=== PATIENT | male | born 1995 | race Caucasian/White ===

== ENCOUNTER 2022-05-28 10:26 | Emergency (ER) | payer OTHER ==
[2022-05-28 11:17] LABS: Absolute Lymphocytes (CBC) 1.3 K/uL (0.7-4.9); Hematocrit 47.5 % (39.6-49.0); Lymphocytes % 35.4 % (15.3-44.8); MCV 91.1 fL (80-100); MPV 9.1 fL (7.6-11.3); RBC Red Blood Cell Count 5.21 M/uL (4.33-5.43)
[2022-05-28 11:43] LABS: Potassium 3.8 mmol/L (3.5-5.1)
--- NOTE | 2022-05-28 12:17 | RAD REPORT ---
EXAM DESCRIPTION: RAD - Chest Single View - 05/28/2022 11:19 am CLINICAL HISTORY: CHEST PAIN Chest pain. COMPARISON: No comparisons FINDINGS: Portable technique limits examination quality. The lungs are grossly clear. The heart is normal in size. No displaced fractures. IMPRESSION: No acute intrathoracic process suspected.
--- NOTE | 2022-05-28 14:23 | EKG ---
Test Date: 2022-05-28 Test Time: 10:53:39 [employer]: ALP MEASUREMENT RESULTS: Intervals: Rate: 58 [place]: 168 QRSD: 86 QT: 360 QTc: 353 [place]: P: 58 [place]: 168 QRS: 85 T: 74 INTERPRETIVE STATEMENTS: Sinus bradycardia Otherwise normal ECG Compared to ECG 02/16/2013 10:17:35 Sinus arrhythmia no longer present Early repolarization no longer present Electronically Signed On 05-28-22 14:22:21 [employer] MACHINE OPERATOR by Tao Sidhu
[2022-05-28] MEDS ORDERED: KETOROLAC 30 MG/ML INJ ONE (14:46)
--- NOTE | 2022-05-28 15:17 | ER ---
Nurse's Notes [facility] Name: Dre Leon Age: 26 yrs Sex: Male : 1995 Arrival Date: 05/28/2022 Time: 10:30 Bed 9 Private MD: Diagnosis: Chest pain, unspecified Presentation: 05/28 10:48 Chief complaint: Patient states: Mid sternal, sharp, CP started this morning, worse jl7 with movement and taking a deep breath. Coronavirus screen: At this time, the client does not indicate any symptoms associated with coronavirus-19. Ebola Screen: No symptoms or risks identified at this time. Initial Sepsis Screen: Does the patient meet any 2 criteria? No. Patient's initial sepsis screen is negative. Does the patient have a suspected source of infection? No. Patient's initial sepsis screen is negative. Risk Assessment: Do you want to hurt yourself or someone else? Patient reports no desire to harm self or others. Onset of symptoms was May 28, 2022. 10:48 Method Of Arrival: Ambulatory 7 10:48 Acuity: DHAVAL 3 jl7 Triage Assessment: 10:49 General: Appears in no apparent distress. uncomfortable, Behavior is calm, cooperative, jl7 appropriate for age. Pain: Complains of pain in mid-sternal area Pain currently is 6 out of 10 on a pain scale. at worst was 9 out of 10 on a pain scale. Cardiovascular: Patient's skin is warm and dry. Historical: - Allergies: 10:49 No Known Allergies; jl7 - Home Meds: 10:49 None [Active]; jl7 - PMHx: 10:49 None; jl7 - PSHx: 10:49 None; jl7 - Immunization history:: Client reports having NOT received the Covid vaccine. - Social history:: Smoking status: Patient reports the use of cigarette tobacco products, denies chronic smoking, but will smoke occasionally. Screenin:10 Abuse screen: Denies threats or abuse. Nutritional screening: No deficits noted. ap3 Tuberculosis screening: No symptoms or risk factors identified. Fall Risk None identified. Assessment: 13:39 General: Appears in no apparent distress. comfortable, Behavior is calm, cooperative, ld1 appropriate for age. Pain: Denies pain. Neuro: Level of Consciousness is awake, alert, obeys commands, Oriented to person, place, time, situation. Cardiovascular: Capillary refill < 3 seconds Patient's skin is warm and dry. Respiratory: Airway is patent Respiratory effort is even, unlabored. GI: Abdomen is flat, non-distended. 14:48 Reassessment: Pt c/o pain in back - notified ERP. See MAR for new orders. ld1 Vital Signs: 10:48 BP 123 / 79; Pulse 73; Resp 17; Temp 97.9; Pulse Ox 99% ; Weight 79.38 kg; Height 6 ft. jl7 (182.88 cm); Pain 6/10; 13:39 BP 129 / 81; Pulse 74; Resp 18; Pulse Ox 99% on R/A; ld1 14:48 BP 127 / 76; Pulse 71; Resp 18; Pulse Ox 100% on R/A; Pain 7/10; ld1 10:48 Body Mass Index 23.73 (79.38 kg, 182.88 cm) jl7 ED Course: 10:30 Patient arrived in ED. mr 10:30 Kiko Bartholomew PA is PHCP. jmm 10:30 Justyn Lewis MD is Attending Physician. jmm 10:48 Radha Grover, RAHEEM is Primary Nurse. iw 10:49 Triage completed. jl7 10:49 Arm band placed on right wrist. jl7 11:07 Inserted saline lock: 20 gauge in right antecubital area, using aseptic technique. ap3 Blood collected. 11:11 Placed in gown. Bed in low position. Side rails up X 1. phototypesetting equipment monitor on. Pulse ox ap3 on. NIBP on. 11:11 No provider procedures requiring assistance completed. Patient maintains SpO2 ap3 saturation greater than 95% on room air. 11:21 XRAY Chest (1 view) In Process Unspecified. EDMS 14:47 Troponin High Sensitivity: Draw at 2 pm Sent. ld1 15:15 Tao Sidhu MD is Referral Physician. jmm 15:24 IV discontinued, intact, bleeding controlled, No redness/swelling at site. ld1 Administered Medications: 14:47 Drug: Ketorolac 30 mg Route: IVP; Site: right antecubital; ld1 Medication: 11:11 VIS not applicable for this client. ap3 Outcome: 15:16 Discharge ordered by . jmm 15:23 Discharged to home ambulatory. ld1 15:23 Condition: stable 15:23 Discharge instructions given to patient, Instructed on discharge instructions, follow up and referral plans. medication usage, Demonstrated understanding of instructions, follow-up care, medications, Prescriptions given X 3. 15:24 Patient left the ED. ld1 Signatures: Dispatcher [employer] EDMS Kiko Bartholomew PA PA jmm Rivera, Mary mr Radha Grover RN RN iw Leal, Jahala, RN RN jl7 Piedad Ricketts RN RN ap3 Netta Cummins RN RN ld1
--- NOTE | 2022-05-28 15:17 | EDPHYS ---
Physician Documentation [facility] Name: Dre Leon Age: 26 yrs Sex: Male : 1995 Arrival Date: 05/28/2022 Time: 10:30 Bed 9 Private MD: ED Physician Justyn Lewis HPI: 05/28 10:39 This 26 yrs old Male presents to ER via Ambulatory with complaints of Chest Pain. [facility] 10:39 The patient or guardian reports chest pain that is located primarily in the substernal [facility] area. The pain radiates to back. Associated signs and symptoms: Pertinent positives: shortness of breath. The chest pain is described as aching, sharp. This is a 26 year old male with no chronic medical conditions that presents to the ED with complaints of substernal chest pain beginning this morning around 0500. Pain radiates into his back upon movement. Patient states when he walks, pain is exacerbated. Complains of some shortness of breath, denies fever. Patient states he does perform strenuous activity at work. . Historical: - Allergies: 10:49 No Known Allergies; jl7 - Home Meds: 10:49 None [Active]; jl7 - PMHx: 10:49 None; jl7 - PSHx: 10:49 None; jl7 - Immunization history:: Client reports having NOT received the Covid vaccine. - Social history:: Smoking status: Patient reports the use of cigarette tobacco products, denies chronic smoking, but will smoke occasionally. ROS: 10:39 Constitutional: Negative for fever, chills, and weight loss. jmm 10:39 Cardiovascular: Positive for chest pain. 10:39 Back: Positive for radiated pain. 10:39 All other systems are negative. Exam: 10:39 Constitutional: This is a well developed, well nourished patient who is awake, alert, jmm and in no acute distress. Head/Face: atraumatic. Eyes: EOMI, no conjunctival erythema appreciated ENT: Moist Mucus Membranes Neck: Trachea midline, Supple Chest/axilla: Normal chest wall appearance and motion. Cardiovascular: Regular rate and rhythm. No edema appreciated Respiratory: Normal respirations, no respiratory distress appreciated Abdomen/GI: Non distended Back: Normal ROM Skin: General appearance color normal MS/ Extremity: Moves all extremities, no obvious deformities appreciated, no edema noted to the lower extremities Neuro: Awake and alert Psych: Behavior is normal, Mood is normal, Patient is cooperative and pleasant 10:39 ECG was reviewed by the Attending Physician. Vital Signs: 10:48 BP 123 / 79; Pulse 73; Resp 17; Temp 97.9; Pulse Ox 99% ; Weight 79.38 kg; Height 6 ft. jl7 (182.88 cm); Pain 6/10; 13:39 BP 129 / 81; Pulse 74; Resp 18; Pulse Ox 99% on R/A; ld1 14:48 BP 127 / 76; Pulse 71; Resp 18; Pulse Ox 100% on R/A; Pain 7/10; ld1 10:48 Body Mass Index 23.73 (79.38 kg, 182.88 cm) jl7 MDM: 10:39 Patient medically screened. [facility] 15:13 Data reviewed: vital signs, nurses notes. Counseling: I had a detailed discussion with [facility] the patient and/or guardian regarding: the historical points, exam findings, and any diagnostic results supporting the discharge/admit diagnosis, the need for outpatient follow up, to return to the emergency department if symptoms worsen or persist or if there are any questions or concerns that arise at home. ED course: Repeat troponin normal. Pain is relieved. patient advised to follow up with pcp and otherwise given strict return precautions. Patient understood and agrees with the plan of care. . 05/28 10:40 Order name: Basic Metabolic Panel; Complete Time: 11:44 [facility] 05/28 10:40 Order name: CBC with Diff; Complete Time: 11:18 [facility] 05/28 10:40 Order name: D-Dimer; Complete Time: 11:21 [facility] 05/28 10:40 Order name: Troponin HS; Complete Time: 11:44 [facility] 05/28 10:40 Order name: XRAY Chest (1 view); Complete Time: 12:25 [facility] 05/28 12:03 Order name: Troponin High Sensitivity: Draw at 2 pm; Complete Time: 15:12 [facility] 05/28 10:40 Order name: EKG; Complete Time: 10:40 [facility] 05/28 10:40 Order name: Cardiac monitoring; Complete Time: 11:07 [facility] 05/28 10:40 Order name: EKG - Nurse/Tech; Complete Time: 10:55 [facility] 05/28 10:40 Order name: IV Saline Lock; Complete Time: 11:07 [facility] 05/28 10:40 Order name: Labs collected and sent; Complete Time: 11: [facility] 05/28 10:40 Order name: O2 Per Protocol; Complete Time: 10:55 [facility] 05/28 10:40 Order name: O2 Sat Monitoring; Complete Time: 11: [facility] EC:39 Rate is 58 beats/min. Rhythm is regular, Sinus bradycardia. QRS [place] is Normal. NC jmm interval is normal. QRS interval is normal. QT interval is normal. No Q waves. T waves are Normal. No ST changes noted. Reviewed by me. Administered Medications: 14:47 Drug: Ketorolac 30 mg Route: IVP; Site: right antecubital; ld1 Disposition: 16:10 Co-signature as Attending Physician, Justyn Lewis MD. rn Disposition Summary: 05/28/22 15:16 Discharge Ordered Location: Home [facility] Condition: Stable jm Diagnosis - Chest pain, unspecified [facility] Followup: [facility] - With: Tao Sidhu MD - When: 2 - 3 days - Reason: Recheck today's complaints, Continuance of care, Re-evaluation by your physician Discharge Instructions: - Discharge Summary Sheet [facility] - Nonspecific Chest Pain, Adult [facility] Forms: - Medication Reconciliation Form [facility] - Thank You Letter [facility] - Antibiotic Education [facility] - Prescription Opioid Use [facility] - Work release form ld1 Prescriptions: - Pepcid 20 mg Oral Tablet - take 1 tablet by ORAL route every 12 hours for 10 days; 20 tablet; Refills: 0, [facility] Product Selection Permitted - Medrol (Jose Luis) 4 mg Oral Tablets, Dose Pack - take 1 tablet by ORAL route as directed - follow package instructions; 1 [facility] packet; Refills: 0, Product Selection Permitted - orphenadrine citrate 100 mg Oral Tablet Sustained Release - take 1 tablet by ORAL route 2 times per day As needed; 20 tablet; Refills: 0, [facility] Product Selection Permitted Signatures: Dispatcher [employer] Kiko Carrion PA PA [facility] Justyn Lewis MD MD rn Leal, Jahala, RN RN jl7 Netta Cummins RN RN ld1
[2022-05-28 15:38] VITALS: TEMP 97.9
[2022-05-28 15:49] VITALS: BP 127/76; O2SAT 100
== END 2022-05-28 15:24 | disposition home or self-care (01) ==
LOC: ER 10:26
DX: R07.89 Other chest pain (principal); R06.02 Shortness of breath; F17.210 Nicotine dependence, cigarettes, uncomplicated
CPT/HCPCS: 36415; 71045; 80048; 84484; 85025; 85379; 93005; 96374; 99285